=== PATIENT | male | born 1935 | race Asian ===

== ENCOUNTER → 2017-02-08 | Outpatient (CLI) | payer MEDICARE ==
[~2017-02-08] MED LIST: ASPI81 PO; CLOP75 PO; FURO1TAB93 PO; GLUC5TAB3 PO; NIAC500 PO; SIMV40TA PO; SPIR50TA21 PO; TAB-TAB PO
[2017-02-08 09:41] LABS: AUTOMATED NEUTROPHIL # 3.8 TH/MM3 (1.8-7.7); BASOPHIL # 0.1 TH/MM3 (0-0.2); BASOPHIL % 0.8 % (0.0-2.0); EOSINOPHIL # 0.1 TH/MM3 (0-0.4); EOSINOPHIL % 1.6 % (0.0-4.0); HEMATOCRIT 39.2 % (39.0-51.0); HEMO FLAGS DIFF FINAL; LYMPH % 35.1 % (9.0-44.0); LYMPHOCYTE # 2.5 TH/MM3 (1.0-4.8); MEAN CELL VOLUME 88.3 FL (80.0-100.0); NEUT % 52.5 % (16.0-70.0); PLATELET COUNT 249 TH/MM3 (150-450); RED BLOOD COUNT 4.44 MIL/MM3 (4.50-5.90); WHITE BLOOD COUNT 7.2 TH/MM3 (4.0-11.0)
[2017-02-08 10:06] LABS: ANION GAP 10 MEQ/L (5-15); AST (GOT) 24 U/L (15-37); BICARBONATE 25.5 MEQ/L (21.0-32.0); BLOOD UREA NITROGEN 29 MG/DL (7-18); CHLORIDE 101 MEQ/L (98-107); GLOMERULAR FILTRATION RATE 57 ML/MIN (>89); GLUCOSE,FASTING 156 MG/DL (74-99); POTASSIUM 3.9 MEQ/L (3.5-5.1); SODIUM (NA) 136 MEQ/L (136-145)
[2017-02-08 10:07] LABS: ALT (GPT) 38 U/L (12-78)
[2017-02-08 10:10] LABS: ALKALINE PHOSPHATASE 61 U/L (45-117); HDL CHOLESTEROL 48.2 MG/DL (40.0-60.0); LDL CHOLESTEROL 55 MG/DL (0-99); TOTAL BILIRUBIN ADULT 0.4 MG/DL (0.2-1.0)
== END ==
LOC: PLAB 08:04
PROVIDERS: ATTEND Family Medicine
DX: R06.02 Shortness of breath (principal); E78.4 Other hyperlipidemia; I10 Essential (primary) hypertension
CPT/HCPCS: 36415; 80053; 80061; 85025

== ENCOUNTER → 2017-04-25 | Day surgery (SDC) | payer MEDICARE ==
[~2017-04-25] VITALS: Ht 152.4 cm; Wt 59.3 kg
[~2017-04-25] MED LIST changes: +ACETAMINOPHEN 1000 MG/100 ML 100 ML IV ONE; +ACETAMINOPHEN/HYDROcodone 325 MG/5 MG TAB PO PRN; +ASPI81CH CHEW; +BUPIVACAINE/EPINEPHRINE 0.25% 50 ML VIAL ONE; +CHLORHEXIDINE GLUCONATE 2 % 1 PACK (2 CLOTHS) TOPICAL PRN; +DEXAMETHASONE SOD PHOS 4 MG/ML VIAL IV ONE; +DO NOT ADM ANY ANTICOAGULANT DRUGS PRN; +FURO1TAB60 PO; +GLYCOPYRROLATE 1 MG/5 ML SYRINGE IV PUSH ONE; +HYDR-4107 PO; +INSULIN HUMAN REGULAR 1,000 UNITS/10 ML VIAL SQ ONE; +INSULIN HUMAN REGULAR 1,000 UNITS/10 ML VIAL SQ PRN; +LACTATED RINGER'S 1000 ML INJ 1,000 ML IV SCH; +LACTATED RINGER'S 1000 ML IV PRN; +LIDOCAINE HCL 1% PF 5 ML AMPULE OTHER ONE; +METF500T PO; +METO25TA3 PO; +METOPROLOL TARTRATE 25 MG TAB PO PRN; +MORPHINE SULFATE 8 MG/ML INJ IV PUSH PRN; +NALOXONE HCL 0.4 MG/ML AMP IV PRN; +NEOSTIGMINE 3 MG/3 ML SYR IV ONE; +NIAC100T2 PO; +ONDANSETRON HCL 4 MG/2 ML VIAL IV PRN; +ONDANSETRON HCL 4 MG/2 ML VIAL IV PUSH ONE; +POVIDONE IODINE 5% (ANTISEPSIS KIT) 4 APPLICATIONS EACH NARE PRN; +PROPOFOL 200 MG/20 ML AMP IV ONE; +Post-op Orders (for Pharmacy) MISC XX ONE; +ROCURONIUM INJ 50 MG/5 ML SYRINGE IV PUSH ONE; +SODIUM CHLORID 0.9% 500 ML IV PRN; +SODIUM CHLORIDE 0.9% FLUSH 5 ML FLUSH IVF PRN; +SODIUM CHLORIDE 0.9% FLUSH 5 ML FLUSH IVF SCH; +SPIR50TA PO; +ceFAZolin 2 GM PREMIX 50 ML IV SCH; +diphenhydrAMINE HCL 50 MG/ML VIAL IV PRN; +ePHEDrine/NS 25 MG/5 ML SYR IV ONE; +metroNIDAZOLE 500 MG INJ 100 ML IV SCH
[2017-04-25 18:00] VITALS: BP 132/75; PULSE 62; RESP 16; TEMP 96.4; O2SAT 99
--- NOTE | 2017-04-25 22:48 | MP ---
cc: TRIP LAWRENCE M.D. DATE OF SURGERY: 04/25/2017 PREOPERATIVE DIAGNOSIS: Acute cholecystitis POSTOPERATIVE DIAGNOSIS Acute cholecystitis PROCEDURE PERFORMED Laparoscopic cholecystectomy SURGEON Trip Lawrence MD. ANESTHESIA General endotracheal anesthesia COMPLICATIONS None. INDICATIONS FOR PROCEDURE: Mr. Jensen is a very pleasant 81 year-old male who has had about a five day history of severe abdominal pain. He went to see his primary doctor, Dr. Govind Patrick. She sent him for lab work and imaging. CT demonstrated a thickened gallbladder wall concerning for cholecystitis. He was sent for a HIDA scan which confirmed non-visualization of the gallbladder consistent with acute cholecystitis. The patient was referred for immediate surgical evaluation. The patient was seen and evaluated in the office yesterday. He was offered immediate cholecystectomy. Risks and benefits of open laparoscopic cholecystectomy discussed with him and he was agreeable. DETAILS The patient identified, brought to the operating room, placed supine on the operating room table. After adequate general endotracheal anesthesia was achieved, the abdomen was prepped and draped in standard surgical fashion. The infraumbilical space anesthetized with 0.25% Marcaine. Infraumbilical incision was made. Dissection was carried down to the subcutaneous tissue to the anterior rectus fascia. The anterior rectus fascia was sthen incised transversely. The peritoneum was easily entered. Blunt finger dissection was used to enter the peritoneal cavity. Blunt dissecting balloon was inserted and the abdomen was insufflated to 15 mmHg using CO2 gas. Next two 5 mm ports were placed in the right upper quadrant after anesthetizing the skin and subcutaneous tissue with 0.25% Marcaine. Attention was directed to the right upper quadrant where the omentum was found to be completely encasing the gallbladder. The omentum was carefully dissected off using blunt and hydrodissection. The omentum had completely surrounded the gallbladder on all sides. Once the gallbladder was identified, it was noted to be extremely distended, very erythematous and edematous. We were unable to grasp it due to its large size and edema. We, therefore, used an aspiration needle where we retrieved approximately 100 cc of dark fluid. Once we did this, the gallbladder was retracted cephalad. Attention was now directed to the gallbladder neck. The gallbladder neck was significantly edematous using a combination of blunt and electrocautery dissection, we were able to identify the gallbladder neck. Once the gallbladder neck was dissected circumferentially, it was confirmed in two planes. Because of its large size, I felt the clips would not adequately go across it. I, therefore, elected to transect the gallbladder at its neck. Once we did this, we could clearly visualize the neck of the gallbladder 360 degrees and followed it down to the cystic duct. Once the junction of the gallbladder and cystic duct was confirmed, it was ligated with 0 PDS Endoloop. Once we did this, we were able to clearly see the artery. The cystic artery was clearly identified. It was clipped twice proximally and then divided distally with electrocautery Bovie. Gallbladder was then dissected out of the hepatic fossa using electrocautery Bovie. Gallbladder was quite edematous and densely adherent to the hepatic fossa. There was a moderate amount of bleeding during the procedure in order to completely fit the gallbladder up. Gallbladder was placed in the Endopouch bag and brought through the infraumbilical port. We did have to enlarge the infraumbilical fascia and skin incision in order to retrieve the large edematous gallbladder. The gallbladder was inspected, found to contain few small stones. It was markedly distended and thickened. It was sent to pathology for analysis. Next the abdominal cavity re-visualized. Liver bed was carefully inspected and all bleeding points controlled with electrocautery Bovie. The gallbladder neck and cystic duct stump were carefully inspected. There was no evidence of a bile leak. The Endoloop was securely in place. Cystic artery was also inspected and the artery was clearly seen pulsating with two clips on the proximal portion and no bleeding. Next the abdominal cavity was rinsed out with approximately one liter of warm saline solution until the effluent was noted to be clear. Once we did this, the hepatic fossa was reinspected and it was completely dry. We then elected to place Josue powder to promote coagulation. Once we did this, there was no bleeding noted whatsoever from the liver bed. The omentum was then placed into the liver bed and the abdomen was then desufflated. All ports were removed under direct vision. The fascia was closed with 0 Vicryl interrupted and skin was closed with 4-0 Vicryl. The patient tolerated the procedure well, was awakened and brought to recovery in stable condition. Please note that this procedure took an excessive amount of time due to the inflammatory nature of the gallbladder. We had to open additional instrumentation in order to safely perform the procedure laparoscopically. ESTIMATED BLOOD LOSS: Approximately 200 cc. The patient had no problems with hemodynamic instability during the procedure. MD UMESH Carreon /3:58 PM /10:25 PM
--- NOTE | 2017-04-26 13:59 | EKG ---
Date Performed: 04/25/2017 Time Performed: 11:58:36 PTAGE: 81 years EKG: Sinus rhythm MARKED RIGHT AXIS DEVIATION RIGHT BUNDLE BRANCH BLOCK MODERATE T-WAVE ABNORMALITY, CONSIDER LATERAL ISCHEMIA ABNORMAL ECG PREVIOUS TRACING : 02/18/2012 08.43 Since prior tracing, lateral T-wave changes are more pronou nced, consider ischemia. DOCTOR: Reid Ryder Interpretating Date/Time 04/26/2017 13:58:40
== END | disposition home or self-care (01) ==
LOC: HSDC 10:59
PROVIDERS: ATTEND Surgery Trauma Surgery
DX: K81.2 Acute cholecystitis with chronic cholecystitis (principal); R94.31 Abnormal electrocardiogram [ECG] [EKG]
CPT/HCPCS: 00790; 47562; 88304; 93005; J0131; J0690; J1815; J7120; J1100; J2405; J2710; J3010